=== PATIENT | male | born 1935 | race Caucasian/White ===

== ENCOUNTER → 2019-01-10 | Outpatient (CLI) | payer OTHER ==
[~2019-01-10] VITALS: Ht 180.3 cm; Wt 92.5 kg
[~2019-01-10] MED LIST: ASA5UEC PO; AVAPRO 150 MG150 M1 PO; CIPROFLOXACIN500 M3 PO; COLACE 100 MG100 MG PO; COUMADIN 5 MG TA5 M1 PO; COZAAR 50 MG TA50 M1 PO; FISH OIL 1,0001 EAC5 PO; LANSOPRAZOLE30 MG PO; LOW DOSE ASPIRI81 M1 PO; METFORMIN HCL500 M2 PO; NIASPAN 500 MG500 M1 PO; PACERONE 200 M200 M1 PO; PLAVIX 75 MG TA75 MG PO; PREVACID 30MG C30 M1 PO; RED YEAST RICE600 MG PO; SERTRALINE HCL50 MG PO; TOPROL XL50 MG PO; TRAVATAN Z2.5 ML OPHTHALMIC; TRIAMCIN-MOXI0.6 ML INH; WELLBUTRIN SR150 MG PO
[2019-01-10 09:20] VITALS: BP 118/56
[2019-01-10 09:25] LABS: ABSOLUTE NEUTROPHILS 8.8 thou/uL (1.4-8.2); EOSINOPHILS 2.8 % (0.0-3.0); HEMATOCRIT 41.3 % (42.0-52.0); HEMOGLOBIN 13.5 gm/dL (14.0-18.0); LYMPHOCYTES 9.9 % (24.0-44.0); MCHC 32.8 g/dL (28.0-37.0); MCV 91.3 fL (80.0-100.0); PLATELET COUNT 384 thou/uL (150-400); POLYS 77.3 % (36.0-66.0); RBC 4.52 mil/uL (4.50-6.00); RDW 14.5 % (10.5-14.5); WBC 11.5 thou/uL (4.0-11.0)
[2019-01-10 09:31] LABS: CALCIUM 9.5 mg/dL (8.5-10.1); CREATININE 1.2 mg/dL (0.7-1.3); POTASSIUM 4.3 mmol/L (3.5-5.1)
[2019-01-10 09:36] LABS: ALBUMIN 3.3 g/dL (3.4-5.0); TOTAL BILIRUBIN 0.6 mg/dL (<0.1-1.0); TOTAL PROTEIN 8.2 g/dL (6.4-8.2)
[2019-01-10 09:37] LABS: PROTIME 10.5 Seconds (9.3-11.4)
--- NOTE | 2019-01-12 14:56 | P ---
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 INDICATIONS: The patient is an 83-year-old with history of cardiomyopathy, prior VT, whose ICD is at the elective replacement interval. He is here for ICD generator exchange. ANESTHESIA: The patient underwent MAC anesthesia with no anesthesia related complications. DESCRIPTION OF PROCEDURE: The patient underwent informed consent. We discussed the details of the procedure including the risks, which include but not limited to bleeding, infection, vascular damage and need for possible lead revisions. He understood these risks and is willing to proceed. The patient was brought to the EP laboratory in fasting and sedated state, prepped and draped in a sterile fashion, he received IV vancomycin for antibiotic prophylaxis. I injected lidocaine at the incision site. Incision was made, the chronic pocket was entered. The old device was disconnected from the leads. New device was connected. TUG tests were performed. The device was tested and found to be functioning normally. The pocket was irrigated with vancomycin. The pocket was then closed in 2 layers using 2-0 for the deep layer, 3-0 for the middle layer, and surgical glue for the outer skin layer. The patient awoke neurologically and hemodynamically intact. No complications and no significant bleeding. The explanted pacemaker was a Medtronic model number O054HPF, serial number [id number], implanted on 12/03/2011. The newly implanted device was a Medtronic, model number [id number], serial number [id number]. The atrial lead was a Medtronic, model number 5076, serial number [id number], implanted on 12/03/2011. The RV lead was a Medtronic, model number 6947, serial number [id number], also implanted on 12/03/2011. The atrial lead demonstrated the patient was in atrial fibrillation. The pacing impedance was 360 ohms and R waves were 0.8. The RV lead demonstrated R waves of 18.9 millivolts, pacing impedance of 456 ohms, pacing threshold 0.5 volts at 0.4 milliseconds. The device was programmed to the DDD 60-130 mode. The VF zone [address] [address] PROCEDURE REPORT Name: FRANCI DE ANDA Room #: REG [facility] Raquel#: [id number] Admission: 01/10/19 Attend Phys: Shailesh Espinosa MD Discharge: Date of : 31 Report #: [id number] was set at greater than 240 beats per minute with ATP while charging followed by max output shocks. <ELECTRONICALLY SIGNED> By: Shailesh Espinosa MD 01/12/19 1456 [id number] 0015 Shailesh Espinosa MD /nt
== END | disposition home or self-care (01) ==
LOC: CATH 08:38
PROVIDERS: Internal Medicine Cardiovascular Disease
DX: Z45.02 Encounter for adjustment and management of automatic implantable cardiac defibrillator (principal); I42.9 Cardiomyopathy, unspecified; I48.91 Unspecified atrial fibrillation; I10 Essential (primary) hypertension; E78.5 Hyperlipidemia, unspecified; I25.2 Old myocardial infarction; M19.90 Unspecified osteoarthritis, unspecified site; K21.9 Gastro-esophageal reflux disease without esophagitis; Z82.49 Family history of ischemic heart disease and other diseases of the circulatory system; Z86.73 Personal history of transient ischemic attack (TIA), and cerebral infarction without residual deficits; Z87.891 Personal history of nicotine dependence; Z87.19 Personal history of other diseases of the digestive system; Z96.651 Presence of right artificial knee joint; Z98.890 Other specified postprocedural states; Z79.899 Other long term (current) drug therapy; Z79.01 Long term (current) use of anticoagulants; Z86.711 Personal history of pulmonary embolism; Z91.041 Radiographic dye allergy status; Z88.8 Allergy status to other drugs, medicaments and biological substances; Z79.82 Long term (current) use of aspirin
CPT/HCPCS: 62110; 62900; 70005